=== PATIENT | female | born 1975 | race Caucasian/White ===

== ENCOUNTER 2024-05-31 22:23 | Emergency (ER) | payer BC, MEDICAID, SELFPAY ==
[2024-05-31 22:28] VITALS: BP 113/74; PULSE 86; RESP 19; TEMP 36.8; O2SAT 98; BMI 18.1
--- NOTE | 2024-05-31 22:40 | XRR_ITS ---
PROCEDURE INFORMATION: Exam: XR Left Foot Exam date and time: 05/31/2024 10:56 PM Age: 48 years old Clinical indication: Left; Patient HX: Pain to top of lt foot after dropping object on it today TECHNIQUE: Imaging protocol: Radiologic exam of the left foot. Views: 3 or more views. COMPARISON: No relevant prior studies available. FINDINGS: Bones/joints: Normal. Soft tissues: Normal. XR/XR foot LT min 3V* [id number] IMPRESSION: No acute findings.
--- NOTE | 2024-05-31 22:51 | ED_ITS ---
HPI - Extremity Problem General: Chief complaint: Extremity Injury, Lower Stated complaint: Left Top Of Foot Injury Time Seen by Provider: 05/31/24 22:33 History of Present Illness: Patient is a 48-year-old presents to the emergency department with complaints of foot pain. Patient reports that she not a heavy pot off the counter and it landed on the top part of her foot. Since that time increasing pain. She reports that this. Painful to bear weight. There are no wounds. The dorsum of the foot appears mildly swollen and ecchymotic. She is neurovascularly intact Related Data Allergies Allergy/AdvReac Type Severity Reaction Status Date / Time No Known Allergies Allergy Verified 05/31/24 22:47 Review of Systems General: Reports: 10 or more systems reviewed and unremarkable except in HPI and below Physical Exam Narrative: EXAM NARRATIVE: No acute distress Alert and oriented x 3 Afebrile vital signs stable Nonlabored breathing, symmetrical chest rise fall Appears well-perfused Nondistended abdomen. Moving all extremities Extremity: NARRATIVE EXTREMITY EXAM: Left lower extremity: Skin is clean dry and intact Mild edema and ecchymosis noted to the dorsum of the foot Patient is able to dorsiflex plantarflex her ankle She is able dorsiflex great toe Sensation intact light touch in medial, lateral, dorsal, plantar surface of the foot and first webspace DP pulses palpable and cap refills less than 3 seconds Course Vital Signs: Vital signs: Vital Signs Temperature 98.2 F 05/31/24 22:28 Pulse Rate 86 05/31/24 22:28 Respiratory Rate 19 H 05/31/24 22:28 Blood Pressure 113/74 05/31/24 22:28 Pulse Oximetry 98 05/31/24 22:28 Oxygen Delivery Me thod Room Air 05/31/24 22:28 MDM - Extremity (Nontraumatic) Medical Decision Making Patient is a 48-year-old female with a left foot injury. She underwent x-ray imaging of the foot to rule out fracture or fracture or dislocation. XR imaging of the left foot reveals no acute fractures. Going to advised patient to ice and elevate the extremity. Tylenol and NSAIDs as needed for pain. May return to the emergency department for new concerning or worsening symptoms XR interpretation done by ED provider, pending radiology final review Discharge Plan Discharge Patient Disposition: Home Clinical Impression: Contusion of foot Condition: Stable Discharge Orders: Discharge ED (Routine); Ordered 05/31/24 Ordered By: Paul John Discharge Diet: Advance as tolerated Discharge Activity: Resume usual activity Patient Instructions: Pain Management, Contusion Activity Restrictions/Additional Instructions: Rest, ice, compression, elevation along with nonsteroidal anti-inflammatory keara gs (ibuprofen, naproxen, Aleve) and Tylenol for pain and swelling Coding Level of Care Code ED Equity Sales Assistant for David Herrera
== END 2024-06-01 00:06 | disposition home or self-care (01) ==
PROVIDERS: Emergency Provider Nurse Practitioner
DX: S90.32XA Contusion of left foot, initial encounter (principal); W20.8XXA Other cause of strike by thrown, projected or falling object, initial encounter
CPT/HCPCS: 73630; 99283

== ENCOUNTER 2024-07-24 15:52 | Emergency (ER) | payer BC, MEDICAID, SELFPAY ==
[2024-07-24 15:56] VITALS: BP 108/72; PULSE 69; RESP 18; TEMP 36.7; O2SAT 99; BMI 20.5
[2024-07-24 17:13] LABS: Basophils # 0.1 10^3/uL (0.0-0.1); Basophils % 0.7 %; Eosinophils # 0.1 10^3/uL (0.0-0.8); Eosinophils % 1.1 %; Hematocrit 40.3 % (36-47); Lymphocytes # 2.8 10^3/uL (0.8-4.8); Lymphocytes % 37.6 %; Mean Platelet Volume 9.9 fL (7.4-10.4); Monocytes # 0.6 10^3/uL (0.2-0.9); Monocytes % 8.3 %; Neutrophils # 3.82 10^3/uL (1.8-7.7); Neutrophils % 52.2 %; Nucleated Red Blood Cells % 0 %; Platelet Count 297 10^3/cmm (157-399); Red Blood Count 4.58 10^6/uL (3.85-5.65); Red Cell Distribution Width 12.8 % (12.1-15.1); White Blood Count 7.32 10^3/uL (3.29-11.43)
[2024-07-24 17:28] LABS: HCG, Serum Qual Negative (Negative)
[2024-07-24 17:31] LABS: Alanine Aminotransferase < 5 U/L (0-33); Alkaline Phosphatase 75 U/L (35-105); Anion Gap 14.2 (5-19); Aspartate Amino Transferase 17 U/L (0-32); Blood Urea Nitrogen 18 mg/dL (6-20); Calcium 9.6 mg/dL (8.5-10.5); Carbon Dioxide 27 mmol/L (22-29); Chloride 104 mmol/L (98-107); Creatinine Clr Calc Pharmacy 99.8965; Globulin 2.5 g/dL (1.3-4.6); Glomerular Filtration Rate 107.2 mL/min (90-130); Glucose 84 mg/dL (65-115); Magnesium 2.3 mg/dL (1.7-2.3); Osmolality Calculated 293 mOsm/kg (285-295); Potassium 4.2 mmol/L (3.5-5.1); Sodium 141 mmol/L (136-145); Total Bilirubin 0.3 mg/dL (0.15-1.2); Total Protein 7.5 g/dL (6.6-8.7)
== END 2024-07-24 19:45 | disposition left against medical advice (07) ==
PROVIDERS: Physician Assistant; Emergency Provider Family Medicine
DX: Z53.21 Procedure and treatment not carried out due to patient leaving prior to being seen by health care provider (principal)
CPT/HCPCS: 36415; 80053; 83735; 84703; 85025

== ENCOUNTER 2025-02-16 18:55 | Observation (INO) | payer BC, MEDICAID, SELFPAY ==
--- NOTE | 2025-02-16 18:56 | ECG_ITS ---
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 Measurements Intervals [place] Rate: 108 P: 75 OK: 135 QRS: 81 QRSD: 81 T: 78 QT: 340 QTc: 458 Interpretive Statements SINUS TACHYCARDIA ABNORMAL RHYTHM ECG No previous ECG available for comparison Electronically Signed On 02-16-2025 22:44:22 CDT by Antonieta Ibanez M.D. [id number]
[2025-02-16 19:10] VITALS: BP 109/81; PULSE 88; RESP 26; TEMP 36.7; O2SAT 98; BMI 16.5
--- NOTE | 2025-02-16 19:12 | XRR_ITS ---
PROCEDURE INFORMATION: Exam: XR Chest Exam date and time: 02/16/2025 7:18 PM Age: 49 years old Clinical indication: Pain; Chest pressure; Additional info: Chest pain TECHNIQUE: Imaging protocol: Radiologic exam of the chest. Views: 1 view. COMPARISON: No relevant prior studies available. FINDINGS: Single film Lungs: Query hyperinflation. Unremarkable. No consolidation. Pleural spaces: Unremarkable. No pleural effusion. No pneumothorax. Heart/Mediastinum: Unremarkable. No cardiomegaly. Bones/joints: Unremarkable. XR/XR chest 1V portable [id number] IMPRESSION: No acute findings.
--- NOTE | 2025-02-16 19:13 | ED_ITS ---
HPI - Chest Pain 2 General: Chief Complaint: Chest Pain Stated Complaint: CHEST PAIN Time Seen by Provider: 02/16/25 18:58 History of Present Illness: Patient is a 49-year-old female that comes to the ER with central chest pain. This is pressure/sharpness in nature, associated with shortness of breath, diaphoresis, nausea. This started this morning. She has had this in the past, and had a stress test set up that she did not make it to due to social issues. She has received aspirin via EMS. She took nitroglycerin x 3 prior to EMS arrival, which caused her to have increasing shortness of breath, and did not help the chest pain. Patient states she has early family history of heart disease with females in their 40s, 2 aunts, mother. She has not had an official ischemic workup. 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 Selected Entries 02/16/25 19:10 ED Triage Comment arrives with shca- c/o substernal ch est pain described as pressure that started this am . Pt reports that th e pain radiates to the neck and left arm. Pt reportedl y took 3 sl nitro and started to c onvulse . Pt stat es this happens ev erytime. EMS repo rt that they gave her 324mg asa, and about 10gm of Dex trose. EMS reports that her BG was 4 9 and then recheck ed at 407. Dexrose stopped. Pt very anxious during tr iage and reports s tress in home life . Associated symptoms: Reports dyspnea and nausea; Deny abdominal pain, fever(s), palpitations or vomiting Related Data Allergies Allergy/AdvReac Type Severity Reaction Status Date / Time cephalexin (From Keflex) Allergy ALGY-Anaphy Verified 02/16/25 23:08 laxis levofloxacin (From Levaquin) Allergy ALGY-Anaphy Verified 02/16/25 23:08 laxis Penicillins Allergy ALGY-Anaphy Verified 02/16/25 23:08 laxis ranitidine Allergy ALGY-Hives Verified 02/16/25 23:08 Review of Systems 2 General: Reports: 10 or more systems reviewed and unremarkable except in HPI and below Const: Denies: fever(s) or chills Eyes: Denies: change in vision or blurry vision ENMT: Denies: throat pain or mouth pain Card: Reports: chest pain; Denies: palpitations Resp: Reports: dyspnea and non-productive cough GI: Reports: nausea; Denies: abdominal pain or vomiting : Denies: flank pain or difficulty voiding Musc: Denies: neck pain or back pain Skin/Breast: Denies: rash or pruritus Neuro: Denies: headache(s) Psych: Denies: anxiety or depression PFSH ED 2 PFSH: Social History (Updated 02/16/25 @ 22:32 by Johnnie Lindsey MD) Smoking and tobacco/nicotine status: former use of tobacco/nicotine Quit status (tobacco/nicotine): has quit using Year quit tobacco: 2023 Former quit date comment: Patient used to smoke cigars for about 2 years Alcohol intake: never Substance/Drug Use: never Additional social history: She wants DO NOT RESUSCITATE status as discussed with myself and her daughter Kaylyn on 02/16/2025 she had a [employer] business that her made her quit 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 Physical Exam 2 Const: COMMON NORMALS: no acute distress, average body habitus, patient oriented x3, no limitations, healthy appearing, alert and well nourished G ENERAL APPEARANCE: cooperative, comfortable, well kempt and well developed O RIENTATION/CONSCIOUSNESS: Yes awake, Yes oriented to person, Yes oriented to place and Yes oriented to time HENMT: COMMON NORMALS: normocephalic, atraumatic, hearing grossly normal bilaterally, external ears normal and TM's normal bilaterally HEAD & SCALP: n ormocephalic and atraumatic EXTERNAL EAR: Yes external ears normal T YMPANIC MEMBRANE: TM's normal bilaterally Neck/C-Spine: COMMON NORMALS: full ROM, no lymphadenopathy, supple and no meningeal signs Lymph: LYMPHATIC: no lymphadenopathy noted Chest: COMMONS NORMALS: normal inspection of the chest, normal palpation of entire chest wall and normal palpation of the breasts BREAST/AXILLA PALPATION: Yes normal palpation of the breasts Resp: COMMON NORMALS: normal respiratory effort, No retractions and clear to auscultation bilaterally AUSCULTATION: clear to auscultation bilaterally Cardio: COMMON NORMALS: regular rate and regular rhythm RATE: regular rate RHYTHM: regular rhythm GI: COMMON NORMALS: Normal to inspection, nondistended, normoactive bowel sounds present, Soft to palpation, non-tender and No hepatosplenomegaly present PALPATION: Yes Soft to palpation and Yes No hepatosplenomegaly present : COMMON NORMALS: Yes no CVA tenderness BLADDER/KIDNEY EXAM: Yes no CVA tenderness Back/Pelvis: COMMON NORMALS: no CVA tenderness Extremity: COMMON NORMALS: normal to inspection, full ROM and capillary refill normal Neuro: COMMON NORMALS: patient oriented x3 SENSORIUM/ORIENTATION: Yes alert, Yes oriented to person, Yes oriented to place and Yes oriented to time MENINGEAL SIGNS: Yes no meningeal signs Psych: APPEARANCE: Yes well kempt Skin: COMMON NORMALS: no rashes or lesions noted, no wounds and turgor normal GENERAL SKIN EXAM: no rashes or lesions noted and turgor normal Course 2 Reevaluation(s): Reevaluation #1: Pain improved after morphine Consultations: Consultation #1: Delta troponin is 16. Discussed with senior risk manager, Dr. Ibanez, recommended heparin, observation, and he will consult. Asked for hospitalist to admit Consultation #2: Discussed with Dr. Lindsey, excepted admit Vital Signs: Vital signs: Vital Signs Temperature 98.1 F 02/16/25 19:10 Pulse Rate 86 02/16/25 23:10 Respiratory Rate 14 02/16/25 22:30 Blood Pressure 117/80 02/16/25 23:10 Pulse Oximetry 98 02/16/25 23:10 Oxygen Delivery Me thod Room Air 02/16/25 22:30 MDM - Chest Pain Medical Decision Making Patient is a 49-year-old female that presented to the ED with having chest discomfort, substernal the entire day associated with shortness of breath, diaphoresis, and nausea. She had aspirin 324 mg by EMS. She took nitroglycerin 0.4 mg sublingual at home x 3 however she believes the pain was worse and caused her increasing shortness of breath. Her pain was relieved with morphine. EKG did not show any ST segment elevation. Her first troponin was 41, and therefore we kept her for additional troponin which was 57. Her delta troponin was 16, considered positive at this institution. Patient was placed on heparin at request of cardiology that we will consult, and cardiology Dr. Ibanez has asked that hospitalist admit. All the patient's questions were answered to her satisfaction. Medical Records I reviewed the patient's medical records. Lab Data 02/16/25 18:50 02/16/25 18:50 Radiology Impressions Chest X-Ray 02/16/25 19:12 IMPRESSION: No acute findings. Laboratory Results WBC 11.90 10^3/uL (3.29-11.43) H 02/16/25 18:50 RBC 5.02 10^6/uL (3.85-5.65) 02/16/25 18:50 Hgb 14.70 g/dL (11.27-16.99) 02/16/25 18:50 Hct 43.7 % (36-47) 02/16/25 18:50 MCV 87.1 fl (85-98) 02/16/25 18:50 MCH 29.3 pg (27-33) 02/16/25 18:50 MCHC 33.6 g/dL (30-55) 02/16/25 18:50 RDW 12.7 % (12.1-15.1) 02/16/25 18:50 Plt Count 414 10^3/cmm (157-399) H 02/16/25 18:50 MPV 10.0 fL (7.4-10.4) 02/16/25 18:50 Neut % (Auto) 52.0 % 02/16/25 18:50 Lymph % (Auto) 37.1 % 02/16/25 18:50 [place] % (Auto) 9.3 % 02/16/25 18:50 Eos % (Auto) 0.6 % 02/16/25 18:50 Baso % (Auto) 0.7 % 02/16/25 18:50 Neut # (Auto) 6.19 10^3/uL (1.8-7.7) 02/16/25 18:50 Lymph # (Auto) 4.4 10^3/uL (0.8-4.8) 02/16/25 18:50 [place] # (Auto) 1.1 10^3/uL (0.2-0.9) H 02/16/25 18:50 Eos # (Auto) 0.1 10^3/uL (0.0-0.8) 02/16/25 18:50 Baso # (Auto) 0.1 10^3/uL (0.0-0.1) 02/16/25 18:50 Nucleated RBC % (auto) 0 % 02/16/25 18:50 Nucleated RBCs # 0.0 /100WBC 02/16/25 18:50 APTT 23.6 SECONDS (23.9-36.7) L 02/16/25 18:50 D-Dimer 0.46 ug/mLFEU (0-0.59) 02/16/25 18:50 Sodium 139 mmol/L (136-145) 02/16/25 18:50 Potassium 4.0 mmol/L (3.5-5.1) 02/16/25 18:50 Chloride 100 mmol/L (98-107) 02/16/25 18:50 Carbon Dioxide 14 mmol/L (22-29) L 02/16/25 18:50 Anion Gap 29.0 (5-19) H 02/16/25 18:50 BUN 13 mg/dL (6-20) 02/16/25 18:50 Creatinine 1.0 mg/dL (0.5-0.9) H 02/16/25 18:50 GFR Calculation 59.4 mL/min (90-130) L 02/16/25 18:50 Glucose 165 mg/dL (65-115) H 02/16/25 18:50 POC Glucose 250 mg/dL (70-110) H 02/16/25 19:09 Calculated Osmolality 292 mOsm/kg (285-295) 02/16/25 18:50 Calcium 10.6 mg/dL (8.5-10.5) H 02/16/25 18:50 Total Bilirubin 0.4 mg/dL (0.15-1.2) 02/16/25 18:50 AST 17 U/L (0-32) 02/16/25 18:50 ALT 10 U/L (0-33) 02/16/25 18:50 Alkaline Phosphatase 90 U/L (35-105) 02/16/25 18:50 Creatine Kinase 83 U/L (26-192) 02/16/25 20:40 Troponin T Baseline 42 ng/L (0-10) H 02/16/25 18:50 Troponin T 120 Minute 57.82 ng/L (0-10) H 02/16/25 20:40 Delta Troponin T 15.82 ABS# (0-10) H* 02/16/25 20:40 Total Protein 7.6 g/dL (6.6-8.7) 02/16/25 18:50 Albumin 5.2 g/dL (3.5-5.2) 02/16/25 18:50 Globulin 2.4 g/dL (1.3-4.6) 02/16/25 18:50 All radiology interpretation(s) finalized by discharge EKG Data EKG 1: Interpretation: Normal sinus rhythm, normal axis, no ST segment elevation EKG 2: Interpretation: Normal sinus rhythm with early repolarization, normal axis, no ST segment elevation, QTc 435 ms Discharge Plan Discharge Patient Disposition: Placed in Observation Admit Provider: Johnnie Lindsey Clinical Impression: Atypical chest pain, Elevated troponin Coding Level of Care Code ED Refrigeration Plant Cork Insulator for David Herrera
[2025-02-16 19:25] LABS: Hematocrit 43.7 % (36-47); Hemoglobin 14.70 g/dL (11.27-16.99); Mean Corpuscular HGB Conc 33.6 g/dL (30-55); Mean Corpuscular Hemoglobin 29.3 pg (27-33); Mean Corpuscular Volume 87.1 fl (85-98); Nucleated Red Blood Cells % 0 %; Platelet Count 414 10^3/cmm (157-399); Red Blood Count 5.02 10^6/uL (3.85-5.65); White Blood Count 11.90 10^3/uL (3.29-11.43)
[2025-02-16] MEDS: ondansetron 2 mg/ML SDV 2 mL 4 MG IVP (19:35)
[2025-02-16 19:36] VITALS: RESP 20
[2025-02-16] MEDS: morphine 4 mg/mL SDV 1 mL IVP (19:36)
[2025-02-16 19:42] LABS: Troponin(5th) Baseline 42 ng/L (0-10)
[2025-02-16 19:52] LABS: Alanine Aminotransferase 10 U/L (0-33); Albumin Level 5.2 g/dL (3.5-5.2); Alkaline Phosphatase 90 U/L (35-105); Anion Gap 29.0 (5-19); Aspartate Amino Transferase 17 U/L (0-32); Blood Urea Nitrogen 13 mg/dL (6-20); Calcium 10.6 mg/dL (8.5-10.5); Carbon Dioxide 14 mmol/L (22-29); Chloride 100 mmol/L (98-107); Creatinine Clr Calc Pharmacy 47.8088; Globulin 2.4 g/dL (1.3-4.6); Glucose 165 mg/dL (65-115); Osmolality Calculated 292 mOsm/kg (285-295); Potassium 4.0 mmol/L (3.5-5.1); Sodium 139 mmol/L (136-145); Total Protein 7.6 g/dL (6.6-8.7)
[2025-02-16 20:15] VITALS: BP 109/84; PULSE 86; RESP 16; O2SAT 98
[2025-02-16 20:45] VITALS: BP 113/80; PULSE 80; RESP 14; O2SAT 96
[2025-02-16 21:01] LABS: Troponin 5 2HR 57.82 ng/L (0-10)
--- NOTE | 2025-02-16 21:13 | ECG_ITS ---
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
[2025-02-16 21:20] LABS: Troponin 5 2HR Delta 15.82 ABS# (0-10)
[2025-02-16 21:52] LABS: Partial Thromboplastin Time 23.6 SECONDS (23.9-36.7)
--- NOTE | 2025-02-16 22:01 | ECG_ITS ---
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
[2025-02-16] MEDS: heparin drip 25,000 UNIT/500 ML PREMIX 12 UNIT IV (22:10)
[2025-02-16] MEDS: heparin 5,000 unit/mL INJ 1 mL IVP (22:20)
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
[2025-02-16 22:30] VITALS: BP 127/90; PULSE 78; RESP 14; O2SAT 97
[2025-02-16 23:10] VITALS: BP 117/80; PULSE 86; O2SAT 98
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
[2025-02-17] VITALS (9 sets, daily range): BP systolic 101–128; BP diastolic 75–84; PULSE 62–88; RESP 14–22; TEMP 36.4–37.1; O2SAT 95–100
[2025-02-17] MEDS: lidocaine 2% viscous 15 ML, aluminum-mag hydrox-simethicon 30 ML, sucralfate oral liq 1 GM PO (01:01)
[2025-02-17] MEDS: morphine 4 mg/mL SDV 1 mL 2 MG IVP ×2 (01:06→15:56)
[2025-02-17 01:36] LABS: Troponin 5 6HR 53.68 ng/L (0-10); Troponin 5 6HR Delta 11.68 ng/L (0-12)
--- NOTE | 2025-02-17 01:38 | ECG_ITS ---
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 Measurements Intervals [place] Rate: 72 P: 63 SD: 148 QRS: 77 QRSD: 75 T: 59 QT: 401 QTc: 441 Interpretive Statements SINUS RHYTHM MODERATE T-WAVE ABNORMALITY, CONSIDER ANTERIOR ISCHEMIA [-0.1+ mV T-WAVE IN V3/V4] Compared to ECG 02/16/2025 22:01:15 T-wave abnormality now present Possible ischemia now present Electronically Signed On 02-18-2025 22:28:51 CDT by Marcos Nunez M.D. [id number]
--- NOTE | 2025-02-17 01:53 | PC.NURSE ---
Received patient from ER around 2330 patient is accompanied by daughter josh and nephew. Dr. Ibanez at bedside followed by hospital laboratory technician.
--- NOTE | 2025-02-17 01:59 | PC.NURSE ---
Received a phone call from Dr. Ibanez regarding how the troponins were trending. Received orders to keep her NPO for now and he will see her in AM.
[2025-02-17] MEDS: nitroglycerin 1 gm/inch oint Pkt 0.5 INCH TOPICAL (03:55)
[2025-02-17 04:28] LABS: Partial Thromboplastin Time 81.9 SECONDS (23.9-36.7)
[2025-02-17 04:29] LABS: Cholesterol 182 mg/dL (0-200); HDL Cholesterol 43 mg/dL (60-100); Triglycerides 52 mg/dL (0-150)
--- NOTE | 2025-02-17 08:26 | ECG_ITS ---
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
--- NOTE | 2025-02-17 08:51 | PM.PN ---
Subjective Subjective: The patient denies any chest pain . She is still having some tight feeling in the chest. Oxygenation is appropriate. The vitals are stable. She also has some headache. The troponin T at 6 hours show a delta of 11.6 Medications: Medication Review Details: Current Medications Aspirin (Aspirin 81 Mg Chew Tablet) 162 mg PO DAILY [facility] Last Admin: 02/17/25 08:45 Dose: 162 mg Atorvastatin Calcium (Atorvastatin 40 Mg Tablet) 20 mg PO BEDTIME [facility] Last Admin: 02/17/25 01:06 Dose: 20 mg Glucagon (Glucagon 1 Mg/Ml Kit 1 Ml) 1 mg IM ONCE PRN; Protocol PRN Reason: Adult Acute Hypoglycemia Nursing Prot. Heparin Sodium (Porcine) (Heparin 5,000 Unit/Ml Inj 1 Ml) 0 unit IVP PRN PRN; Protocol PRN Reason: Heparin Weight Based Protocol -Subsequent Bolus Heparin Sodium/Sodium Chloride (Heparin Drip) 25,000 unit in 500 mls @ 0 mls/hr IV CONT KRISTI; Protocol Last Titration: 02/17/25 05:27 Dose: 12.63 unit/kg/hr, 11 mls/hr Lactated Ringer's (Lactated Ringers) 1,000 mls @ 100 mls/hr IV .Q10H KRISTI Last Admin: 02/17/25 01:06 Dose: 100 mls/hr Dextrose (D5w) 500 mls @ 0 mls/hr IV ONCE PRN; Protocol PRN Reason: Adult Acute Hypoglycemia Prot Dextrose (D10w) 125 mls @ 750 mls/hr IV PRN PRN; Protocol PRN Reason: Adult Acute Hypoglycemia Nursing Protocol Dextrose (D10w) 250 mls @ 1,000 mls/hr IV PRN PRN; Protocol PRN Reason: Adult Acute Hypoglycemia Nursing Protocol Morphine Sulfate (Morphine 4 Mg/Ml Sdv 1 Ml) 2 mg IVP Q1H PRN PRN Reason: SEVERE PAIN Last Admin: 02/17/25 01:06 Dose: 2 mg Nitroglycerin (Nitroglycerin 1 Gm/Inch Oint Pkt) 0.5 inch TOPICAL Q6H PRN PRN Reason: CHEST PAIN Last Admin: 02/17/25 03:55 Dose: 0.5 inch Prednisone (Prednisone 20 Mg Tablet) 40 mg PO NOW [facility] Vitals/I&O/Wt Last Vital Signs Temp 97.5 F L 02/17/25 08:00 Pulse 76 02/17/25 08:00 Resp 16 02/17/25 08:00 BP 101/78 02/17/25 08:00 Pulse Ox 99 02/17/25 08:00 O2 Del Method Room Air 02/17/25 08:00 02/16/25 02/17/25 02/17/25 22:59 06:59 14:59 Intake Total 1150 / 1150 87.4 / 1237.4 Balance 1150 / 1150 87.4 / 1237.4 Weight last 48 hrs Weight 105 lb 4.8 oz Weight 105 lb 9.6 oz Weight 104 lb 8 oz Weight 97 lb 9.6 oz Weight 96 lb Physical Exam Narrative: GENERAL: The patient is alert and oriented times three. Not in any acute distress. HEENT: No significant pallor, icterus or lymphadenopathy.Oral cavity: There are no mucous membrane lesions. NECK: Trachea appears to be central. No masses noted. No JVD or thyromegaly appreciated. RESPIRATORY: Chest is symmetrical. No intercostals muscle retraction or any accessory muscle activation. There is no chest wall tenderness. Breath sounds are heard bilaterally. No rales or rhonchi heard. No evidence of any consolidation. BREASTS: Deferred. HEART: The heart sounds are normal. No S3 or S4. No significant murmurs. No pericardial rub ABDOMEN: No vessel pulsations or distention. No tenderness. No organomegaly appreciated. Bowel sounds are normally heard. : Deferred. RECTAL: Deferred. LYMPHATIC: No lymphadenopathy noted in the neck. EXTREMITIES: No edema or cyanosis. No clubbing. The feet are relatively cold MUSCULOSKELETAL: No acute joint deformities or swelling SKIN: There are no significant rashes or ecchymosis NEUROPSYCHIATRIC: The patient is alert and oriented x3. Appears to be in a good mood. No tremors or rigidity noted. Data 02/16/25 18:50 02/16/25 18:50 Other Labs: Laboratory Last Values WBC 11.90 10^3/uL (3.29-11.43) H 02/16/25 18:50 RBC 5.02 10^6/uL (3.85-5.65) 02/16/25 18:50 Hgb 14.70 g/dL (11.27-16.99) 02/16/25 18:50 Hct 43.7 % (36-47) 02/16/25 18:50 MCV 87.1 fl (85-98) 02/16/25 18:50 MCH 29.3 pg (27-33) 02/16/25 18:50 MCHC 33.6 g/dL (30-55) 02/16/25 18:50 RDW 12.7 % (12.1-15.1) 02/16/25 18:50 Plt Count 414 10^3/cmm (157-399) H 02/16/25 18:50 MPV 10.0 fL (7.4-10.4) 02/16/25 18:50 Neut % (Auto) 52.0 % 02/16/25 18:50 Lymph % (Auto) 37.1 % 02/16/25 18:50 Reeves % (Auto) 9.3 % 02/16/25 18:50 Eos % (Auto) 0.6 % 02/16/25 18:50 Baso % (Auto) 0.7 % 02/16/25 18:50 Neut # (Auto) 6.19 10^3/uL (1.8-7.7) 02/16/25 18:50 Lymph # (Auto) 4.4 10^3/uL (0.8-4.8) 02/16/25 18:50 Reeves # (Auto) 1.1 10^3/uL (0.2-0.9) H 02/16/25 18:50 Eos # (Auto) 0.1 10^3/uL (0.0-0.8) 02/16/25 18:50 Baso # (Auto) 0.1 10^3/uL (0.0-0.1) 02/16/25 18:50 Nucleated RBC % (auto) 0 % 02/16/25 18:50 Nucleated RBCs # 0.0 /100WBC 02/16/25 18:50 APTT 81.9 SECONDS (23.9-36.7) H D 02/17/25 04:01 D-Dimer 0.46 ug/mLFEU (0-0.59) 02/16/25 18:50 Sodium 139 mmol/L (136-145) 02/16/25 18:50 Potassium 4.0 mmol/L (3.5-5.1) 02/16/25 18:50 Chloride 100 mmol/L (98-107) 02/16/25 18:50 Carbon Dioxide 14 mmol/L (22-29) L 02/16/25 18:50 Anion Gap 29.0 (5-19) H 02/16/25 18:50 BUN 13 mg/dL (6-20) 02/16/25 18:50 Creatinine 1.0 mg/dL (0.5-0.9) H 02/16/25 18:50 GFR Calculation 59.4 mL/min (90-130) L 02/16/25 18:50 Glucose 165 mg/dL (65-115) H 02/16/25 18:50 POC Glucose 250 mg/dL (70-110) H 02/16/25 19:09 Calculated Osmolality 292 mOsm/kg (285-295) 02/16/25 18:50 Calcium 10.6 mg/dL (8.5-10.5) H 02/16/25 18:50 Total Bilirubin 0.4 mg/dL (0.15-1.2) 02/16/25 18:50 AST 17 U/L (0-32) 02/16/25 18:50 ALT 10 U/L (0-33) 02/16/25 18:50 Alkaline Phosphatase 90 U/L (35-105) 02/16/25 18:50 Creatine Kinase 83 U/L (26-192) 02/16/25 20:40 Troponin T Baseline 42 ng/L (0-10) H 02/16/25 18:50 Troponin T 120 Minute 57.82 ng/L (0-10) H 02/16/25 20:40 Delta Troponin T 15.82 ABS# (0-10) H* 02/16/25 20:40 Troponin T Hi Sens 6Hr 53.68 ng/L (0-10) H 02/17/25 00:35 Troponin T Hi Sens 6Hr Delta 11.68 ng/L (0-12) 02/17/25 00:35 Total Protein 7.6 g/dL (6.6-8.7) 02/16/25 18:50 Albumin 5.2 g/dL (3.5-5.2) 02/16/25 18:50 Globulin 2.4 g/dL (1.3-4.6) 02/16/25 18:50 Triglycerides 52 mg/dL (0-150) 02/17/25 04:01 Cholesterol 182 mg/dL (0-200) 02/17/25 04:01 LDL Cholesterol, Calc 129 mg/dL (50-129) 02/17/25 04:01 HDL Cholesterol 43 mg/dL (60-100) L 02/17/25 04:01 LDL/HDL Ratio 3.00 RATIO (0.00-3.22) 02/17/25 04:01 Cholesterol/HDL Ratio 4.23 mg/dL (0.0-4.40) 02/17/25 04:01 A&P Assessment and plan 1. Elevated troponin: Baseline troponin T was found to be elevated with positive delta suggesting a non-ST elevation myocardial infarction. She is seems to be stable hemodynamically. The EKG is unremarkable. Repeat EKG from this morning shows sinus rhythm with no significant ECG changes 2. Atypical chest pain: With elevated troponin T and the strong family history for premature atherosclerotic heart disease, her clinical features may suggest a non-ST elevation myocardial infarction. For further evaluation, an echocardiogram would be helpful. The echocardiogram showed relative hypokinesia of the mid and apical septal segments. But the overall LV ejection fraction is normal. 3. SOB (shortness of breath): This could be related to underlying coronary ischemia. However his EKG is unremarkable. Possibility for PE cannot be excluded. We may go ahead and do a D-dimer. 4. AVNRT (AV guillermo re-entry tachycardia): He has not had any tachycardic events since the ER visit. No tacky arrhythmias on the monitor so far Plan: I discussed with the patient the findings of the echocardiogram and the blood test results. The D-dimer is normal. Most likely the features may suggest a non-ST elevation myocardial infarction. For further evaluation of the coronary status, a cardiac catheterization would be appropriate. The risks and benefits were discussed with the patient. The risk of bleeding, hematoma, vascular injury, myocardial infarction, myocardial perforation, malignant cardiac arrhythmias ,CVA, renal failure and other concomitant complications were explained in detail. Patient understood this well and consented to proceed. Patient had multiple contrast media injection in the past. There was one time, she had an episode of allergic reaction to dye?. She also was given Tamiflu around the same time. Patient seems to think that the Tamiflu might have caused the reaction. So we may plan for the angiogram sometime today. Will keep her n.p.o. Discussed with Dr. Dyson. PDMP PDMP Reviewed: Not Reviewed Attestations Medical Necessity Statement*: Patient requires continued hospital stay for close monitoring and further management Coding Level of Care Code 14318 Diagnoses Elevated troponin R79.89 Atypical chest pain R07.89 SOB (shortness of breath) R06.02 AVNRT (AV guillermo re-entry tachycardia) I47.19
[2025-02-17 09:25] LABS: Estmated Average Glucose 111; Hemoglobin A1C 5.5 % (4.0-6.0)
--- NOTE | 2025-02-17 09:48 | PC.CHAP ---
Pastoral Care Encounter/Spiritual Assessment Type of Contact [] Declined front desk auxiliary visit [] Patient/Family/Request visit [] Outpatient visit [] Follow-up visit [] Physician referral [] Code/Alert [x] Routine visit [] Staff referral [] Actively dying [] Patient sleeping [x] Family support [] [] Out of room [] Palliative care [] [] Receiving care in room [] Pre-surgical visit [] Trauma [] Long length of stay [] ICU visit [] Other: Relational/Emotional Strength [x] Patient feels connected with others/family/visitors/staff [] Distress [] Loneliness/isolation [] Abandonment Spirituality of Patient [x] Person of Tabby [] Attends Taoism of their Tabby [x] Believes in Prayer [] Reads Bible or Yarsani materials [] There are Spiritual issues to be addressed 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 [x] Prayer [x] Active listening [x] Non-anxious presence [x] Spiritual/emotional support [] Crisis/trauma care [] Spiritual counseling [] Bereavement support [] Provided bereavement packet [] Provided Bible/devotional materials [] Provided toy/stuffed animal, coloring book to patient or family member [] Provided Communion [] Anointing/[place] [] Salvation [x] Completed spiritual assessment [] Other: Impact on Illness or Injury [] Angry [] Fearful [] Anxious [] Often cries [] Exhaustion [] Unable to work [] Unable to attend muslim [] Unable to walk/stand [] Unable to read [] Unable to drive [] Unable to eat/drink [] Unable to sleep [] Unable to be with family [] Patient intubated [] Other: Summary Time spent with patient 5 min
--- NOTE | 2025-02-17 10:11 | XACV_ITS ---
Exam Room: [facility] Ht: 163 cm Wt: 48 kg BSA: 1.46 m2 Gender: Female : 1975 Any Known Allergies: Other Exam Priority: Routine Procedure(s): Procedure Description: Diagnostic procedure Procedure Description: Left Heart Catheterization Procedure Description: Left ventriculography Procedure Description: Aortic Arch Angiography Procedure Description: Miscellaneous Procedure Description: ACT Procedure Description: Coronary Angiography Shamar; Diagnostic Cath Status: Elective Diagnostic Findings * The left main is a medium caliber short vessel with no significant stenotic lesions. * Left anterior descending artery is a medium caliber vessel which appears to wraparound the LV apex. The ostium of the LAD was found to have around 40% stenosis. The proximal LAD was found to have mild diffuse ectasia. There is a tapering negative for around 40%, towards the takeoff of the first septal slaughterer religious ritual. The first diagonal branch was found to have an ostial around 50% narrowing. The mid and distal LAD was found to have no significant lesions.. * The left circumflex artery was found to have the remaining caliber vessel with no significant lesions. * The right coronary artery is a medium caliber dominant vessel with no significant lesions. Conclusions 1. 49-year-old white female with history of premature atherosclerotic heart disease, AV guillermo reentry tachycardia is admitted to hospital with complaints of chest pain and shortness of breath. She had elevated troponin T with a positive delta of around 17 at 2 hours. Her EKG was unremarkable. Echocardiogram revealed relative hypokinesia of the mid and apical septal and anteroseptal segments. Normal LV ejection fraction. The patient has been having episodes of chest pain for the last couple of years. She may have her ongoing symptoms and the abnormal objective findings, in order to further evaluate the coronary status, a cardiac catheterization was recommended. Patient underwent left heart catheterization with a left and right coronary angiogram, LV angiogram and aortogram today. The findings are as follows.. 2. No significant left main lesions. 40% lesion in the ostium of the left and descending artery and at the takeoff of the first diagonal branch. 50% ostial stenosis of the first diagonal branch. No severe lesions in the left circumflex artery and the right coronary artery. LV ejection fraction of 55%. Mild hypokinesis of the anteroapical region. LVEDP was 30 mmHg. The aortic root was found to be dilated. Aortogram revealed mild diffuse ectasia of the ascending aorta.. 3. The cardiac colorization data was reviewed and discussed with the . It was thought to be appropriate to continue the medical treatment at this point. Patient was transferred to the medical floor in stable condition. Diagnostic RX Recommendation: medical therapy and/or counseling LV EDP: 13 mmHg Ventriculography Ejection Fraction: 55.0 % Left Ventriculography Findings: * The LV gram was performed in LIEBERMAN projection. LV cavity appeared to be normal size. There is no severe mitral valve prolapse or mitral regurgitation. Mild hypokinesis of the anteroapical region was noted. The aortic root appears to be mildly dilated. * An aortogram was performed because of the aortic root dilatation. It was performed in the shallow BHUTANESE view. Mild diffuse ectasia of the ascending aorta was noted with no evidence of dissection or aneurysm. Pressures Phase:Rest AO : 106 / 74 ( 89 ) @ 1:10:00 PM 107 / 78 ( 92 ) @ 1:10:00 PM 103 / 75 ( 89 ) @ 1:12:00 PM 115 / 89 ( 102 ) @ 1:15:00 PM 104 / 49 ( 77 ) @ 1:21:00 PM 105 / 41 ( 72 ) @ 1:21:00 PM 82 / 62 ( 73 ) @ 1:23:00 PM LV : 107 / -13 / 13 @ 1:20:00 PM 104 / -13 / 10 @ 1:20:00 PM 104 / -13 / 10 @ 1:21:00 PM Valves Phase:DefaultPhase AV : 0.0 @ 12:47:49 PM AV Mean Gradient: 0.0 @ 12:47:49 PM Clinical Evaluation EBL: 5mL-10mL Procedural Details Procedure Consent Obtained. Current Diagnosis : Chest Pain. Pre-Procedure Time Out. Identified patient by full name and date of as verbalized by the patient/guarantor. Does the consent match the physician's order: Yes. Accurate & Complete Informed Consent: Yes. Inpatient/Outpatient History & Physical on Chart: Yes. If H&P is completed, is and addenduem needed: No; If yes, is the addendum complete: N/A. Visualize and Verify Site with Patient/Guarantor: N/A. Relevant Radiology Images available: Yes. Pre-op teaching completed and patient verbalized understanding. The risks, benefits, and alternatives of sedation and/or procedure were discussed by physician. The patient agrees to continue. Procedure started. [facility] Clinical Fraility Score: 3: Managing Well. 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 Chest Pain Symptom Assessment: Typical Angina Symptoms. Correct patient, site and procedure confirmed by cath team. Current diagnosis: Chest Pain. IV Site on Arrival: 18 gauge in the right anticubital. IV Site on Arrival: 18 gauge in the left anticubital. IV Fluids: 0.9% NaCl at KVO. 0 mL infused prior to mushroom laborer. Oxygen started at 2liters/min via nasal canula. bilateral groins was prepped with chloroprep then draped in the usual sterile fashion. Baseline sample Acquired. HR: 77 BPM. Physician notified. Physician arrived. Physician scrubbed in. Immediate Pre-Procedure Time Out. Correct Patient: Yes; Correct Procedure: Yes; Correct Site: Yes; Correct Patient Position: Yes; Correct Supplies: Yes; Dried Flammable Prep: Yes; Blood Products Available: N/A;. Lidocaine 1% infiltrated to the right groin. Arterial access obtained with micropuncture set. ACT drawn. Results 149 seconds. Therapeutic limits - pre-heparin administration 90-150 seconds and monitoring heparin during a vascular procedure >250 seconds. A 5 equatorial guinean JL4 catheter in over wire. Multiple views taken of left coronary artery. Catheter removed over the standard wire. A 5 equatorial guinean JR4 catheter in over wire. Multiple views taken of right coronary artery. Catheter removed over the standard wire. A 5 equatorial guinean Angled Pig catheter in over wire. Dr. Ferro called to review films. EDP Sample taken: LV 107/-14,13; HR: 72 BPM; SpO2: 99%. LV gram performed in LIEBERMAN @ 10 mL/second for a total of 30 mL. EDP Sample taken: LV 104/-14,10; HR: 74 BPM; SpO2: 99%. Pullback taken: LV 104/-14,10; AO 104/49(77); Mean: 0mmHg, Peak to Peak: 0mmHg, SEP: 7sec/min; HR: 74 BPM; SpO2: 99%. Aortogram performed in AP @ 20 mL/second for a total of 20 mL. Aortic Root Visualized. Dr. Ferro arrived. Catheter removed over the standard wire. Dr. Ibanez scrubbed out. A Manual Compression was successful obtaining hemostatsis at the Right Femoral artery insertion site. Sheath(s) removed and manual pressure held until hemostasis was achieved. Sterile 4x4 and Op-site applied to the puncture site. No oozing or hematoma noted. Post sheath removal instructions were given and the patient verbalized understanding. Medication's Wasted: Lidocaine 1% = 2 mL. Medication's Wasted: Other = Solu-Medrol 85 mg. Medication's Wasted: Heparin = 2000 units. Total IV fluids: 50 mL. Post-op diagnosis: Non-obstructive CAD. Complications: None. Estimated blood loss: 5mL-10mL. Responsiveness - Normal response to verbal stimuli; alert and oriented, PERRLA. PERRLA. Strong, equal hand nursery school teacher bilaterally. No VTE prophylaxis required. Airway - Unaffected, no intervention required; spontaneous ventilation. Circulation: W/N/L, pulses unchanged. Nausea/Vomiting: No. Post Procedure: Pulses reassessed and unchanged. Procedure completed. Patient transferred by bed to 1st floor. Vital chart was stopped. Access Site Site: Right Femoral artery Sheath Size: 6 Fr Hemostasis Method: Manual Compression Hemostasis Success: Successful Procedure Medications Start: 11:56 AM Stop: 11:56 AM Medication: Versed Amount: 1 mg Route: I.V. Start: 11:56 AM Stop: 11:56 AM Medication: Fentanyl Amount: 50 mcg Route: I.V. Start: 11:57 AM Stop: 11:57 AM Medication: Solu-Medrol (methylprednisolone) Amount: 40 mg Route: I.V. Start: 12:18 PM Stop: 12:18 PM Medication: Versed Amount: 1 mg Route: I.V. Start: 12:18 PM Stop: 12:18 PM Medication: Fentanyl Amount: 50 mcg Route: I.V. I, the attending physician, have reviewed and verified all procedure medications. Yes, all medications given per verbal order History/Risk Factors Hypertension: No Dyslipidemia: No Peripheral Arterial Disease (PAD): No Myocardial Infarction (DC): No Obesity: No Renal Disease: No Tobacco Use: Former Prior Interventions PCI: No CABG: No Valve Surgery: No Report Signatures Finalized by Dr Antonieta Ibanez MD [facility] on 02/17/2025 01:30 PM
--- NOTE | 2025-02-17 11:57 | P.HPUD_ITS ---
Surgery/Procedure H&P Update DATE OF PROCEDURE: February 17, 2025 DATE H&P PERFORMED: 02/16/25 H&P UPDATE INFORMATION: I have reviewed H&P completed within last 30 days, I have examined patient prior to procedure, No changes to prior documentation, Changes to prior documentation as noted here and H&P to be scanned into chart PREOP DIAGNOSIS: NSTEMI PRIMARY INDICATION FOR PROCEDURE: Unstable angina/non-ST elevation myocardial infarction/family history of premature heart disease PLANNED PROCEDURE: Left heart catheterization with coronary angiogram and possible PCI PATIENT REASSESSED PRIOR TO SEDATION, WITH NO CHANGE NOTED: Yes PHYSICAL EXAM: alert, oriented x 3, clear to auscultation bilaterally and r egular rate & rhythm AIRWAY EVAL/ANESTHESIA PLAN: normal airway, see other exam findings, ASA III, Monitored Anesthesia, Local Anesthesia, Risks, benefits & alternatives of sed ation and/or procedure discussed and Patient agrees to continue as planned
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
--- NOTE | 2025-02-17 23:20 | USCV_ITS ---
Ilana Wilkerson Age: 49 Gender: F : 1975 Exam Date: 02/17/2025 00:09 Ordering Phys: Antonieta Ibanez MD ([email or web address]) Technologist: JASPREET [place] [facility] [place]: chesrt pain , SOB BP: 117 / 80 HR: 68 Rhythm: Sinus Technical Quality: Adequate MEASUREMENTS (Male / Female) Normal Values 2D ECHO LV Diastolic Diameter PLAX 3.9 cm 4.2 - 5.9 / 3.9 - 5.3 cm IVS Diastolic Thickness 1.0 cm 0.6 - 1.0 / 0.6 - 0.9 cm IVS Systolic Thickness 1.2 cm LVPW Diastolic Thickness 0.9 cm 0.6 - 1.0 / 0.6 - 0.9 cm LVPW Systolic Thickness 1.3 cm LVOT Diameter 1.8 cm LV Ejection Fraction 2D Teich 61.6 % LV Ejection Fraction MOD 4C 56.9 % LV Ejection Fraction MOD 2C 70.2 % LV Ejection Fraction 2C AL 72.2 % LA Diameter 1.8 cm Aorta at Sinotubular Diameter 3.0 cm IVC Diameter 1.1 cm M-MODE LA Ao Ratio MM 1.0 AV Cusp Separation MM 2.1 cm DOPPLER AV Peak Velocity 83.0 cm/s LVOT Peak Velocity 80.0 cm/s AV Area Cont Eq vti 2.4 cm squared AV Area Cont Eq pk 2.5 cm squared MV Peak Velocity 111.0 cm/s MV Area PHT 3.7 cm squared Mitral E to A Ratio 1.4 TV Peak Velocity 161.0 cm/s TR Peak Velocity 233.0 cm/s TR Peak Gradient 21.7 mmHg TV Peak E Velocity 61.0 cm/s PV Peak Velocity 76.0 cm/s FINDINGS Left Ventricle Relative hypokinesia of the mid and apical septum and the anteroseptal segments. Ejection fraction of 57%. Right Ventricle The right ventricle is normal in size and function. Right Atrium The right atrium is normal in size. Left Atrium The left atrium is normal in size. Mitral Valve No gross abnormalities noted Aortic Valve No gross abnormalities noted Tricuspid Valve Trace tricuspid valve regurgitation. Pulmonic Valve Trace pulmonary valve regurgitation. Pericardium Normal pericardium without effusion. Aorta Normal aortic annulus size. IVC Normal inferior vena cava. CONCLUSIONS Normal LV size with an ejection fraction of 57%. Relative hypokinesia of the mid and apical septum and the anteroseptal segments. Trace of pulmonic and tricuspid regurgitation Normal cardiac chamber sizes There is no pericardial effusion. There are no intracardiac masses. No similar previous studies are available for comparison Dr Antonieta Ibanez MD FAC (Electronically Signed) Final Date: 17 February 2025 08:03 S
--- OUTSIDE RECORDS SUMMARY | 2025-02-18 12:29 | XMS_ITS | Encounter Summary ---
Author Organization [facility] Address [address] [place] [address] Care Team Providers Care Class 1 Owner Operator Name Role Phone Maria Teresa Winters NP Primary Care Provider Unavailab le Reason for Visit * Reason Comments Office Visit: Converted Data Conversion Encounter Details Date Type Department Care Team (Late st Contact Info) Description 01/15/2024 Dental Interim Note [facility] [address] [place] [address] [facility] [place] Social History Tobacco Use Types Packs/Day Years Used Date Smoking Tobacco: Never Assessed Social Connections Answer Date Recorded Social Connections and Isolation 0 10/31/2023 Financial Resource Strain Answer Date R ecorded Financial Resource Strain 0 2023 Stress Answer Date Recorded Stress 0 10/31/2023 Physical Activity Answer Date Recorded Physical Activity 0 10/31/2023 Food Insecurity Answer Date Recorded Food 0 10/31/2023 Transportation Needs Answer Date Record ed Transportation 0 10/31/2023 Housing Stability Answer Date Recorded Housing 0 10/31/2023 Safety and Environment Answer Date Abraham rded Safety 0 10/31/2023 Utilities Answer Date Recorded Utilities 0 10/31/2023 Employment Answer Date Recorded Employment 0 10/31/2023 Comments Unknown Sex and Gender Information Value Date Recorded Sex Assigned at Not on file Legal Sex Female 6:53 PM PDT Gender Identity Choose not to disclose 3:53 PM PDT Sexual Orientation Choose not to disclose 2023 3:53 PM PDT documented as of this encounter Plan of Treatment Scheduled Orders Name Type Priority Associated Diagnoses Order Schedule 29 29 CROWN - PORCELAIN/CERAMIC Dental Procedures Routine 1 Occurrence s starting 12/25/2023 29 29 ENDODONTIC THERAPY PREMOLAR TOOTH Dental Procedures Routine 1 Occurrences starting 12/25/2023 29 29 EXTRACTION ERUPTED TOOTH OR EXPOSED ROOT Dental Procedures Routine 1 Occurrences starting 12/25/2023 documented as of this encounter Visit Diagnoses Not on filedocumented in this encounter Care Teams Class 1 Owner Operator Relationship Specialty Start Date End Date Maria Teresa Winters NP PCP - General ORDER DESK CALLER Nurse Practitioner 03/14/24 10/22/24 documented as of this encounter
--- OUTSIDE RECORDS SUMMARY | 2025-02-18 12:29 | XMS_ITS | Encounter Summary ---
Author Organization [facility] Address [address] [place] [address] Care Team Providers Care Fondant Puff Maker Name Role Phone Maria Teresa Winters NP Primary Care Provider Unavail le Encounter Details Date Type Department Care Team (Late st Contact Info) Description 01/07/2024 Dental Interim Note [facility] [address] [place] [address] Shahzad Cronin Social History Tobacco Use Types Packs/Day Years [...] as of this encounter Plan of Treatment Not on file documented as of this encounter Procedures Procedure Name Priority Date/Time Associated Diagnosis Comments 29 (V) AMALGAM - WISDOM (NON BILLABLE) Routine 01/07/2024 12:00 AM CDT 19 CHRISTINE AMALGAM - WISDOM (NON BILLABLE) Routine 01/07/2024 12:00 AM CDT 18 O AMALGAM - WISDOM (NON BILLABLE) Routine 01/07/2024 12:00 AM CDT 30 O AMALGAM - WISDOM (NON BILLABLE) Routine 01/07/2024 12:00 AM CDT 31 B(V)OL COMPOSITE - WISDOM (NON BILLABLE) Routine 11/07/2023 12:00 AM CDT 31 O AMALGAM - WISDOM (NON BILLABLE) Routine 09/12/2023 12:00 AM PULP MILL OPERATOR documented in this encounter Visit Diagnoses Diagnosis Periapical abscess without sinus tract- Primary Periapical abscess without sinus Dental caries on smooth surface penetrating into pulp Dental caries of smooth surface documented in this encounter Care Teams Fondant Puff Maker Relationship Specialty Start Date End Date Maria Teresa Winters NP PCP - General POWERHOUSE ATTENDANT Nurse Practitioner 03/14/24 10/22/24 documented as of this encounter
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
--- OUTSIDE RECORDS SUMMARY | 2025-02-18 14:03 | XMS_ITS | Encounter Summary ---
Author Organization [facility] Address [address] [place] [address] Care Team Providers Care Scarf And Anneal Operator Name Role Phone Maria Teresa Winters NP Primary Care Provider Unavailab le Reason for Visit * Reason Comments Office Visit: Converted Data Conversion Encounter Details Date Type Department Care Team (Late st Contact Info) Description 01/15/2024 Dental Interim Note [facility] [address] [place] [address] [facility] [place] Social History Tobacco Use Types [...] on filedocumented in this encounter Care Teams Scarf And Anneal Operator Relationship Specialty Start Date End Date Maria Teresa Winters NP PCP - General WHIPPER Nurse Practitioner 03/14/24 10/22/24 documented as of this encounter
--- OUTSIDE RECORDS SUMMARY | 2025-02-18 14:03 | XMS_ITS | Encounter Summary ---
Author Organization [facility] Address [address] [place] [address] Care Team Providers Care Sap Bw Developer Name Role Phone Tej Wells DO Primary Care Provider Unava ilable Encounter Details Date Type Department Care Team (Late st Contact Info) Description 02/10/2025 External Device Data [facility] ABSTRACTION Provider, Abstract NO ADDRESS ON FILE Social History Tobacco Use Types Packs/Day Years Used Date Smoking Tobacco: Never Smokeless Tobacco: Never Alcohol Use Standard Drinks/Week Comments Yes 0 (1 standard drink = 0.6 oz pur e alcohol) Comments Unknown Sex and Gender Information Value Date Recorded Sex Assigned at Not on file Legal Sex Female 11:45 PM HARNESS MENDER Gender Identity Not on file Sexual Orientation Not on file documented as of this encounter Plan of Treatment Not on file documented as of this encounter Visit Diagnoses Not on filedocumented in this encounter Care Teams Sap Bw Developer Relationship Specialty Start Date End Date Tej Wells DO NO ADDRESS ON FILE PCP - General Family Practice 10/15/12 documented as of this encounter
--- OUTSIDE RECORDS SUMMARY | 2025-02-18 14:03 | XMS_ITS | Clinical Summary ---
Author Organization [facility] Address [address] [place] [address] Care Team Providers Care Handle Finisher Name Role Phone Unavailable Primary Care Provider [...] 2022 Fecal DNA 2022 Flexible Sigmoidoscopy 2022 [id number] ( season) 2024 Alcohol and Drug Screen 07/09/2024 Depression Annual Screen 07/09/2024 09/26/2023 Hypertension Screening (#1) 10/25/2024 Imm-Influenza (#1) 2025 Cervical Ablation/Cold-Knife Conization Discontinued Cervical Cryotherapy Discontinued Colposcopy Discontinued Endometrial Biopsy Discontinued Excision/Leep Discontinued HPV Genotyping Discontinued Vaginal Pap Discontinued Vulvoscopy Discontinued Insurance [place]
--- OUTSIDE RECORDS SUMMARY | 2025-02-18 14:03 | XMS_ITS | Clinical Summary ---
Author Organization [facility] Address [address] Attn: [place] [address] Care Team Providers Care Metal Hanger Name Role Phone Tej Wells Primary Care Provider Unava ilable Encounters Date Type Department Care Team Description 02/10/2025 External Device Data [facility] ABSTRACTION Provider, Abstract 01/21/2025 External Device Data [facility] ABSTRACTION Provider, Abstract 01/21/2025 External Device Data [facility] ABSTRACTION Provider, Abstract 01/20/2025 External Device Data [facility] ABSTRACTION Provider, Abstract 12/23/2024 External Device Data [facility] ABSTRACTION Provider, Abstract 11/27/2024 External Device Data [facility] ABSTRACTION Provider, Abstract 11/26/2024 External Device Data [facility] ABSTRACTION Provider, Abstract 11/25/2024 External Device Data [facility] ABSTRACTION Provider, Abstract from Last 3 Months Family History Medical History Relation Name Comments Hypertension Father Stroke Father Other Mother Relation Name Status Comments Father Alive Mother Alive Social History Tobacco Use Types Packs/Day Years Used Date Smoking Tobacco: Never Smokeless Tobacco: Never Alcohol Use Standard Drinks/Week Comments Yes 0 (1 standard drink = 0.6 oz pur e alcohol) Comments Unknown Sex and Gender Information Value Date Recorded Sex Assigned at Not on file Legal Sex Female 11:45 PM SUPERVISOR NEWSPAPER DELIVERIES Gender Identity Not on file Sexual Orientation Not on file Last Filed Vital Signs Vital Sign Reading Time Taken Comments Blood Pressure 92/58 04/24/2018 10:54 AM CDT Pulse 83 09/29/2015 4:00 PM CDT Temperature 36.4 C (97.6 F) 06/10/2016 11:03 PM SUPERVISOR NEWSPAPER DELIVERIES Respiratory Rate 16 06/10/2016 11:03 PM SUPERVISOR NEWSPAPER DELIVERIES Oxygen Saturation - - Inhaled Oxygen Concentration - - Weight 49.7 kg (109 lb 8 oz) 04/24/2018 10:54 AM CDT Height 162.6 cm (5' 4 ) 04/24/2018 10:54 AM CDT Body Mass Index 18.8 04/24/2018 10:54 AM CDT Plan of Treatment Health Maintenance Due Date Last Done Comments DTAP/TDAP/TD VACCINES (3 - Tdap) 06/03/1994 06/02/1994, 02/28/1994, 01/27/1983 HEPATITIS B VACCINES (1 of 3 - 19+ 3-dose series) 1996 BREAST CANCER SCREENING 2017 PAP SMEAR 04/29/2021 04/29/2018, 04/09, 04/24/2018 COLORECTAL SCREENING 2022 Colorectal Cancer Screening 2022 FIT-DNA Q 3 years 2022 FIT/FOBT Q 1 year 2022 Flex Sig/CT Colonography Q 5 years 2022 CERVICAL CANCER SCREENING 04/29/2023 HPV/Cotest (21-29) 04/29/2023 04/29/2018, 04/29/2018 HPV/Cotest (30-65) 04/29/2023 04/29/2018, 04/29/2018 INFLUENZA VACCINE (#1) 2025 04/09/2003, 2002 Procedures Procedure Name Priority Date/Time Associated Diagnosis Comments CERV/VAG CYTO SCREEN PAP W/HPV 04/29/2018 12:00 AM CDT from Last 3 Months or Most Recently Relevant to Health Maintenance Results * CERV/VAG CYTO SCREEN PAP W/HPV (04/29/2018 12:00 AM CDT) Luca Rodríguez DO PATHOLOGY/CYTOLOGY ORDERABLES F inal Result from Last 3 Months or Most Recently Relevant to Health Maintenance Insurance [facility] MEDICAID Care Teams Metal Hanger Relationship Specialty Start Date End Date Tej Wells DO NO ADDRESS ON FILE PCP - General Family Practice 10/15/12
--- OUTSIDE RECORDS SUMMARY | 2025-02-18 14:03 | XMS_ITS | Encounter Summary ---
Author Organization [facility] Address [address] [place] [address] Care Team Providers Care Doper Operator Name Role Phone Maria Teresa Winters NP Primary Care Provider Unavail le Encounter Details Date Type Department Care Team (Late st Contact Info) Description 01/07/2024 [facility] [address] [place] [address] Shahzad Cronin Social History Tobacco [...] WISDOM (NON BILLABLE) Routine 09/12/2023 12:00 AM DIP GUIDER STOVES documented in this encounter Visit Diagnoses Diagnosis Periapical abscess without sinus tract- Primary Periapical abscess without sinus Dental caries on smooth surface penetrating into pulp Dental caries of smooth surface documented in this encounter Care Teams Doper Operator Relationship Specialty Start Date End Date Maria Teresa Winters NP PCP - General SQL CONSULTANT Nurse Practitioner 03/14/24 10/22/24 documented as of this encounter
== END 2025-02-17 19:05 | disposition home or self-care (01) ==
LOC: ER 22:00 → CSU 23:13
PROVIDERS: Internal Medicine Cardiovascular Disease; Admitting Provider Internal Medicine; Emergency Provider Physician Assistant; Visit Provider Family Medicine
DX: I25.118 Atherosclerotic heart disease of native coronary artery with other forms of angina pectoris (principal); R79.89 Other specified abnormal findings of blood chemistry; I47.19 Other supraventricular tachycardia; Z82.49 Family history of ischemic heart disease and other diseases of the circulatory system; Z87.891 Personal history of nicotine dependence; Z66 Do not resuscitate
CPT/HCPCS: 36415; 36416; 71045; 80053; 80061; 82550; 82962; 83036; 84484; 85025; 85347; 85378; 85730; 93005; 93306; 93458; 96365; 96374; 96375; 99152; 99153; 99285; C1769; C1887; C1894; G0378; J1644; J2250; J2270; J2405; J2919; J3010; J7030; J7120; J7512; J9999; Q0163; Q9967

== ENCOUNTER → 2025-02-26 16:25 | Outpatient (BNVA) | payer BC, MEDICAID, SELFPAY | PROVIDERS: Visit Provider Nurse Practitioner Family | DX: R06.02 Shortness of breath (principal); R79.89 Other specified abnormal findings of blood chemistry | CPT/HCPCS: 36415; 80053; 85025 ==

== ENCOUNTER 2025-03-06 12:11 | Emergency (ER) | payer BC, MEDICAID, SELFPAY ==
--- OUTSIDE RECORDS SUMMARY | 2023-12-10 06:30 | XMS_ITS | Continuity of Care Document ---
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 Take for 1 day post sexual encounter. - Active metronidazole 500 mg tablet take 1 tablet by oral route every 12 hours for 7 days. - Active Procedures Procedure Date No Work Today/No Charge Resin-Based Composite One Surface, Posterior Resin-Based Composite Three Surfaces, Posterior Periodontal Scaling And Root Planing Four Or Mor Periodontal Scaling And Root Planing Four Or Mor Periodontal Scaling And Root Planing Four Or Mor Periodontal Scaling And Root Planing Four Or Mor NO CHARGE URINALYSIS AUTO W/O SCOPE SBIRT - AUDIT/DAST, 15-30 MIN OFFICE/OUTPATIENT VISIT, EST URINALYSIS AUTO W/O SCOPE Community Health Worker Patient Face To Face SBIRT - AUDIT/DAST, 15-30 MIN OFFICE/OUTPATIENT VISIT, EST Bitewings Four Films Intraoral Periapical First Film Intraoral Periapical Each Additional Film Intraoral Periapical Each Additional Film Panoramic Film Comprehensive Oral Evaluatio n New Or Established Caries High Risk Exempt From Sealant Measure SBIRT - AUDIT/DAST, 15-30 MIN OFFICE/OUTPATIENT VISIT, EST URINALYSIS AUTO W/O SCOPE Community Health Worker Patient Face To Face Limited Oral Evaluation Problem Focused Intraoral Periapical First Film Advance Directives Directive Yes / No Effective Date File Name No Information Encounters Encounter Description Practice Location Reason(s) For Visit Diagnoses Date Provider Providers Copied on Encounter [facility], [id number]- [place], [id number], [place] tel:[phone] [facility] Encounter for dental exam and cleaning w/o abnormal findings 4 Mehrdad Pike. [address] [place] [address], [address], [place]. tel:[phone] Referring Provider: Shahzad Cronin, [address] [place] [address], [address]. tel:[phone] [facility], [id number]- [place], [id number], [place] tel:[phone] [facility] Encounter for dental exam and cleaning w/o abnormal findings 4 Mehrdad Pike. [address] [place] [address], [address], [place]. tel:[phone] Referring Provider: Shahzad Cronin, [address] [place] [address], [address]. tel:[phone] [facility], [id number]- [place], [id number], [place] tel:[phone] [facility] Encounter for dental exam and cleaning w/o abnormal findings 4 Philippe Mcpherson. [address] [place], [address], [place]. tel:[phone] Referring Provider: Ky Paez, [address] [place] [address], [address]. tel:[phone] [facility], [id number]- [place], [id number], [place] tel:[phone] [facility] Encounter for dental exam and cleaning w/o abnormal findings 4 Philippe Mcpherson. [address] [place], [address], [place]. tel:[phone] Referring Provider: Ky Paez, [address] [place] [address], [address]. tel:[phone] [facility], [id number]- [place], [id number], [place] tel:[phone] [facility] Unspecified abnormal findings in urine 4 Vianey Morel. [address] [place], [address], [place]. tel:[phone] Referring Provider: Maria Teersa Winters, [address] [place] [address], [address]. tel:[phone] OFFICE/OUTPA TIENT VISIT, [facility], [id number]- [place], [id number], [place] tel:[phone] [facility] possible UTI (chief complaint) Urinary tract infection, site not specified 4 Vianey Morel. [address] [place], [address], [place]. tel:[phone] Referring Provider: Maria Teresa Winters, [address] [place] [address], [address]. tel:[phone] [facility], [id number]- [facility], [place], [place], [id number], [place] tel:[phone] [facility] No Information Sep-0 4 Coordinator Abran. [address] [place], [place], [id number], [place]. tel:[phone] Referring Provider: Abran Sánchez r, [address] [place], [address] . tel:[phone] OFFICE/OUTPA TIENT VISIT, [facility], [id number]- [place], [id number], [place] tel:[phone] [facility] Discharge (chief complaint) Bacterial vaginosis Sep-0 4 Marry Worthington. [address] [place] [address], [address], [place]. tel:[phone] Referring Provider: Elin Tuttle, [address] [place] [address], [address]. tel:[phone] [facility], [id number]- [place], [id number], [place] tel:[phone] [facility] Encounter for dental exam and cleaning w/o abnormal findings Sep-0 4 Mehrdad iPke. [address] [place] [address], [address], [place]. tel:[phone] Referring Provider: Shahzad Cronin, [address] [place] [address], [address]. tel:[phone] OFFICE/OUTPA TIENT VISIT, [facility], [id number]- [place], [id number], [place] tel:[phone] [facility] in hospital with flu A ... now having (chief complaint) Vaginal yeast infectionAcute UTI (urinary tract infection)Frequ ency of micturition 4 Vianey Morel. [address] [place], [address], [place]. tel:[phone] Referring Provider: Maria Teresa Winters, [address] [place] [address], [address]. tel:[phone] [facility], [id number]- [place], [id number], [place] tel:[phone] [facility] Low incomeInsuffici ent social insurance and welfare support 3 Coordinator Care. [address], [place], [address], [place]. tel:[phone] [facility], [id number]- [place], [address], [place] tel:[phone] [facility] No Information 3 Marry Worthington. [address] [place] [address], [address], [place]. tel:[phone] Referring Provider: Elin Tuttle, [address] [place] [address], [address]. tel:[phone] [facility], [id number]- [place], [id number], [place] tel:[phone] [facility] Encounter for dental exam and cleaning w/o abnormal findings 3 Mehrdad Pike. [address] [place] [address], [address], [place]. tel:[phone] Referring Provider: Shahzad Cronin, [address] [place] [address], [address]. tel:[phone] Family History Family Member Type Diagnosis Age At Onset No Information Payers Payer name Insurance type Covered alliance party ID denise camargo(s) Cesar [employer] CI [id number] Social History Type Description Quantity Date Captured Comments Alcohol Use Details No Caffeine Use Details Unknown Tobacco Use Status No Information Smoking Status No Information Sex Female Sexual Orientation Decline To Specify Gender Identity Declined To Specify Chief Complaint And Reason For Visit No Information Reason For Referral Reason For Referral No Information Plan Of Treatment Date Type Action Status Referral Ordered: JOSEPH (related to Low income) ordered Referral Ordered: Referrals: Location: [facility] ordered History Of Present Illness Encounter Date Complaint History Of Prese nt Illness possible UTI 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 She has been on several rounds of antibiotics. She is not getting better and continues to have symptomsShe has had 5 bladder surgeries. UA provided in office today. Discharge Onset: 2 weeks a go. The client describes it as fishy and yellow. It occurs continuously. The problem is improving. Context: sexually active. Denies aggravating factors. Denies relieving factors. Associated symptoms include burning and itching. Pertinent negatives include bleeding, parasites and persistent diarrhea. Additional information: Pt states that 2 weeks ago she got on antibiotics for yeast and but they haven't helped. Discharge is now yellow with odor that wasn't present last time. in hospital with flu A ... now having Associated symptoms include having discharge. onset 4 days. She was recently in the hospitalNo having thick white vaginal discharge.She is having some UTI symptomsUrine was done today in office. Functional Status Date Functional Assessmen t No Information Instructions Date Instruction Additional Infor swati Take Macrobid 100mg BID for 7d and for 24 hours after sexual encounters. You may use OTC Azo/Pyridium as needed for relief of dysuria for the next two days. Work on increasing fluid intake, wear cotton underwear, change your underwear regularly, be sure to wipe [id number], void after intercourse, and avoid the use of spermicides in order to help prevent the recurrence of UTIs. Return for further evaluation if your symptoms do not resolve after this course of treatment. Related to Urinary tract infection, site not specified Prescribe Flagyl. Di scussed use of probiotic or yogurt and avoiding alcohol while on antibiotic.Follow up as needed. Related to Bacterial vaginosis Fluconazole 150 mg o nce, can repeat in one week if continuing to have symptomsCLindamycin sent to pharmacy for UTI Related to Vaginal yeast infection Assessments Type Assessment Date No Information Patient Care Teams Name Effective Dates (start - stop) Status Members No Information
[2025-03-06] VITALS (7 sets, daily range): BP systolic 94–124; BP diastolic 63–78; PULSE 54–62; RESP 12–16; TEMP 36.8; O2SAT 94–99; BMI 18.7
--- NOTE | 2025-03-06 12:16 | ECG_ITS ---
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 Measurements Intervals [place] Rate: 56 P: 88 WI: 162 QRS: 85 QRSD: 84 T: 83 QT: 400 QTc: 387 Interpretive Statements SINUS BRADYCARDIA Compared to ECG 02/17/2025 08:39:41 Sinus rhythm no longer present Electronically Signed On 03-06-2025 22:37:55 CDT by Bakari Coelho M.D. [email or web address]
--- OUTSIDE RECORDS SUMMARY | 2025-03-06 12:18 | XMS_ITS | Encounter Summary ---
Author Organization [facility] Address [address] [place] [address] Care Team Providers Care Healthcare Network Consultant Name Role Phone Maria Teresa Winters NP Primary Care Provider Unavail le Encounter Details Date Type Department Care Team (Late st Contact Info) Description 01/07/2024 [facility] [address] [place] [address] Shahzad Cronin Social History Tobacco [...] WISDOM (NON BILLABLE) Routine 09/12/2023 12:00 AM MANAGEMENT PROFESSIONAL documented in this encounter Visit Diagnoses Diagnosis Periapical abscess without sinus tract- Primary Periapical abscess without sinus Dental caries on smooth surface penetrating into pulp Dental caries of smooth surface documented in this encounter Care Teams Healthcare Network Consultant Relationship Specialty Start Date End Date Maria Teresa Winters NP PCP - General HORSE RACETRACK MANAGER Nurse Practitioner 03/14/24 10/22/24 documented as of this encounter
--- OUTSIDE RECORDS SUMMARY | 2025-03-06 12:18 | XMS_ITS | Clinical Summary ---
Author Organization [facility] Address [address] Attn: [place] [address] Care Team Providers Care Cup Machine Operator Name Role Phone LisaTej lowry Man WEINER Primary Care Provider Unava ilable Encounters Date [...] on file Legal Sex Female 11:45 PM FACULTY SUPPORT COORDINATOR Gender Identity Not on file Sexual Orientation Not on file Last Filed Vital Signs Vital Sign Reading Time Taken Comments Blood Pressure 92/58 04/24/2018 10:54 AM CDT Pulse 83 09/29/2015 4:00 PM CDT Temperature 36.4 C (97.6 F) 06/10/2016 11:03 PM FACULTY SUPPORT COORDINATOR Respiratory Rate 16 06/10/2016 11:03 PM FACULTY SUPPORT COORDINATOR Oxygen Saturation - - Inhaled Oxygen Concentration [...] Most Recently Relevant to Health Maintenance Insurance [facility] MEDICAID Care Teams Cup Machine Operator Relationship Specialty Start Date End Date Tej Wells DO NO ADDRESS ON FILE PCP - General Family Practice 10/15/12
--- OUTSIDE RECORDS SUMMARY | 2025-03-06 12:18 | XMS_ITS | Encounter Summary ---
Author Organization [facility] Address [address] [place] [address] Care Team Providers Care Tax Clerk Name Role Phone Maria Teresa Winters NP Primary Care Provider Unavailab le Reason for Visit * Reason Comments Office Visit: Converted Data Conversion Encounter Details Date Type Department Care Team (Late st Contact Info) Description 01/15/2024 Dental Interim Note [facility] [address] [place] [address] [facility] [place] Social History Tobacco Use [...] on filedocumented in this encounter Care Teams Tax Clerk Relationship Specialty Start Date End Date Maria Teresa Winters NP PCP - General RADIO ELECTRONICS TECHNICIAN Nurse Practitioner 03/14/24 10/22/24 documented as of this encounter
--- OUTSIDE RECORDS SUMMARY | 2025-03-06 12:18 | XMS_ITS | Clinical Summary ---
Author Organization [facility] Address [address] [place] [address] Care Team Providers Care Reel Cart Operator Name Role Phone Unavailable Primary Care Provider [...] 2022 Fecal DNA 2022 Flexible Sigmoidoscopy 2022 [id number] ( season) 2024 Alcohol and Drug Screen 07/09/2024 Depression Annual Screen 07/09/2024 09/26/2023 Hypertension Screening (#1) 10/25/2024 Imm-Influenza (#1) 2025 Cervical Ablation/Cold-Knife Conization Discontinued Cervical Cryotherapy Discontinued Colposcopy Discontinued Endometrial Biopsy Discontinued Excision/Leep Discontinued HPV Genotyping Discontinued Vaginal Pap Discontinued Vulvoscopy Discontinued Insurance [place] MEDICAID DENTAL
--- NOTE | 2025-03-06 12:36 | W.ED.CHESTPA ---
HPI - Chest Pain General: Chief Complaint: Chest Pain Stated Complaint: chest pain/sob Time Seen by Provider: 03/06/25 12:25 History of Present Illness: Patient comes in with chest pain. States at 11:00 last night she developed midsternal chest pain which she describes as sharp, constant, no radiation, no alleviating or exacerbating factors. States that she was seen here about 2 to 3 weeks ago after having the same symptoms and was diagnosed with a heart attack. States they did a cath which showed two-vessel blockage about 40 to 50%. No intervention at that time. She was started on atorvastatin and aspirin. Denies fever, cough, congestion, abdominal pain, vomiting, diarrhea. States the sharp chest pain she started all of a sudden. Will check labs, EKG, CTA chest with PE protocol, treat pain with 50 mg of IV Toradol, and reassess. Associated symptoms: Deny abdominal pain, dyspnea, fever(s), nausea or vomiting Related Data Previous Rx's ?Medication ?Instructions ?Recorded nitroglycerin 0.4 mg sublingual 0.4 mg sublingual Q5M PRN Chest 02/17/25 tablet Pain 30 days #30 tabs aspirin 81 mg chewable tablet 81 mg PO DAILY #90 tabs 02/26/25 atorvastatin 40 mg tablet 20 mg (1/2 x 40 mg) PO BEDTIME #90 02/26/25 tabs Allergies Allergy/AdvReac Type Severity Reaction Status Date / Time cephalexin (From Keflex) Allergy ALGY-Anaphy Verified 02/16/25 23:08 laxis levofloxacin (From Levaquin) Allergy ALGY-Anaphy Verified 02/16/25 23:08 laxis Penicillins Allergy ALGY-Anaphy Verified 02/16/25 23:08 laxis ranitidine Allergy ALGY-Hives Verified 02/16/25 23:08 Review of Systems Const: Denies: fever(s) or body aches Resp: Denies: dyspnea or productive cough GI: Denies: abdominal pain, nausea or vomiting [facility] ED PFSH: Social History (Updated 02/16/25 @ 22:32 by Johnnie Lindsey MD) Smoking and tobacco/nicotine status: former use of tobacco/nicotine Quit status (tobacco/nicotine): has quit using Year quit tobacco: 2023 Former quit date comment: Patient used to smoke cigars for about 2 years Alcohol intake: never Substance/Drug Use: never Additional social history: She wants DO NOT RESUSCITATE status as discussed with myself and her daughter Kaylyn on 02/16/2025 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 Physical Exam Const: COMMON NORMALS: no acute distress, patient oriented x3, healthy appearing and alert HENMT: COMMON NORMALS: normocephalic and atraumatic HEAD & SCALP: normocephalic and atraumatic Neck/C-Spine: COMMON NORMALS: full ROM and supple Resp: COMMON NORMALS: normal respiratory effort, No retractions and No use of accessory muscles Cardio: COMMON NORMALS: regular rate and regular rhythm RATE: regular rate RHYTHM: regular rhythm Extremity: COMMON NORMALS: normal to inspection and full ROM Neuro: COMMON NORMALS: patient oriented x3 SENSORIUM/ORIENTATION: Yes alert Psych: COMMON NORMALS: mental status grossly normal and cooperative Course Vital Signs: Vital signs: Vital Signs Temperature 98.2 F 03/06/25 12:20 Pulse Rate 60 03/06/25 15:00 Respiratory Rate 15 03/06/25 15:00 Blood Pressure 105/74 03/06/25 15:00 Pulse Oximetry 94 03/06/25 15:00 Oxygen Delivery Me thod Room Air 03/06/25 15:00 MDM - Chest Pain Medical Decision Making On reassessment I talked with the patient about her test results. She has an allergy to CT dye she thinks so we held off on the CAT scan I checked a D-dimer which was normal. Her troponin came back at 31 initially and 26.5 on repeat. This is down from the 40s where it was a couple weeks ago when she was admitted. Her pain is improved after the Toradol. We talked about symptoms that should prompt immediate return to the emergency department. Given the downtrending of her troponin and her EKG which has no significant changes from prior we will discharge at this time with precautions to return for worsening or changing symptoms. Lab Data 03/06/25 12:34 03/06/25 13:16 Laboratory Results WBC 7.37 10^3/uL (3.29-11.43) 03/06/25 12:34 RBC 4.32 10^6/uL (3.85-5.65) 03/06/25 12:34 Hgb 12.40 g/dL (11.27-16.99) 03/06/25 12:34 Hct 39.3 % (36-47) 03/06/25 12:34 MCV 91.0 fl (85-98) 03/06/25 12:34 MCH 28.7 pg (27-33) 03/06/25 12:34 MCHC 31.6 g/dL (30-55) 03/06/25 12:34 RDW 12.8 % (12.1-15.1) 03/06/25 12:34 Plt Count 254 10^3/cmm (157-399) 03/06/25 12:34 MPV 11.8 fL (7.4-10.4) H 03/06/25 12:34 Neut % (Auto) 58.5 % 03/06/25 12:34 Lymph % (Auto) 32.0 % 03/06/25 12:34 Person % (Auto) 6.4 % 03/06/25 12:34 Eos % (Auto) 2.0 % 03/06/25 12:34 Baso % (Auto) 0.7 % 03/06/25 12:34 Neut # (Auto) 4.31 10^3/uL (1.8-7.7) 03/06/25 12:34 Lymph # (Auto) 2.4 10^3/uL (0.8-4.8) 03/06/25 12:34 Person # (Auto) 0.5 10^3/uL (0.2-0.9) 03/06/25 12:34 Eos # (Auto) 0.2 10^3/uL (0.0-0.8) 03/06/25 12:34 Baso # (Auto) 0.1 10^3/uL (0.0-0.1) 03/06/25 12:34 Nucleated RBC % (auto) 0 % 03/06/25 12:34 Nucleated RBCs # 0.0 /100WBC 03/06/25 12:34 D-Dimer 0.33 ug/mLFEU (0-0.59) 03/06/25 13:16 Sodium 142 mmol/L (136-145) 03/06/25 13:16 Potassium 4.5 mmol/L (3.5-5.1) 03/06/25 13:16 Chloride 109 mmol/L (98-107) H 03/06/25 13:16 Carbon Dioxide 25 mmol/L (22-29) 03/06/25 13:16 Anion Gap 12.5 (5-19) 03/06/25 13:16 BUN 13 mg/dL (6-20) 03/06/25 13:16 Creatinine 0.7 mg/dL (0.5-0.9) 03/06/25 13:16 GFR Calculation 89.7 mL/min (90-130) L 03/06/25 13:16 Glucose 86 mg/dL (65-115) 03/06/25 13:16 Calculated Osmolality 293 mOsm/kg (285-295) 03/06/25 13:16 Calcium 8.7 mg/dL (8.5-10.5) 03/06/25 13:16 Total Bilirubin 0.2 mg/dL (0.15-1.2) 03/06/25 13:16 AST 16 U/L (0-32) 03/06/25 13:16 ALT 13 U/L (0-33) 03/06/25 13:16 Alkaline Phosphatase 62 U/L (35-105) 03/06/25 13:16 Troponin T Baseline 31 ng/L (0-10) H 03/06/25 12:34 Troponin T 120 Minute 26.54 ng/L (0-10) H 03/06/25 14:05 Delta Troponin T -4.46 ABS# (0-10) L 03/06/25 14:05 Total Protein 6.1 g/dL (6.6-8.7) L 03/06/25 13:16 Albumin 4.0 g/dL (3.5-5.2) 03/06/25 13:16 Globulin 2.1 g/dL (1.3-4.6) 03/06/25 13:16 Lipase 57 U/L (13-60) 03/06/25 13:16 All radiology interpretation(s) finalized by discharge EKG Data EKG 2: Interpretation: EKG done March 06, 2025 at 1:38 PM and interpreted by me at 1:39 PM shows sinus bradycardia, ventricular to 53 bpm, no ST segment elevation, nonspecific T wave inversion in V1 and V2 Discharge Plan Discharge Patient Disposition: Home Clinical Impression: Chest pain Condition: Stable Prescriptions: No Action atorvastatin 40 mg tablet 20 mg PO BEDTIME Qty: 90 0RF aspirin 81 mg tablet,chewable 81 mg PO DAILY Qty: 90 0RF nitroglycerin 0.4 mg Tablet, Sublingual 0.4 mg sublingual Q5M PRN (Reason: Chest Pain) 30 Days Qty: 30 0RF Discharge Orders: Discharge ED (Routine); Ordered 03/06/25 Ordered By: Srinivas Snyder Patient Instructions: Chest Pain (ED), Patient Portal & Shan Instructions Print Language: Kyrgyz Coding Level of Care Code ED Bone Density Technician for David Herrera
[2025-03-06 12:53] LABS: Hematocrit 39.3 % (36-47); Hemoglobin 12.40 g/dL (11.27-16.99); Mean Corpuscular HGB Conc 31.6 g/dL (30-55); Mean Corpuscular Hemoglobin 28.7 pg (27-33); Mean Corpuscular Volume 91.0 fl (85-98); Nucleated Red Blood Cells % 0 %; Platelet Count 254 10^3/cmm (157-399); Red Blood Count 4.32 10^6/uL (3.85-5.65); White Blood Count 7.37 10^3/uL (3.29-11.43)
[2025-03-06 13:11] LABS: Troponin(5th) Baseline 31 ng/L (0-10)
[2025-03-06 13:53] LABS: Alanine Aminotransferase 13 U/L (0-33); Albumin Level 4.0 g/dL (3.5-5.2); Alkaline Phosphatase 62 U/L (35-105); Anion Gap 12.5 (5-19); Aspartate Amino Transferase 16 U/L (0-32); Blood Urea Nitrogen 13 mg/dL (6-20); Calcium 8.7 mg/dL (8.5-10.5); Carbon Dioxide 25 mmol/L (22-29); Chloride 109 mmol/L (98-107); Creatinine Clr Calc Pharmacy 82.4956; Globulin 2.1 g/dL (1.3-4.6); Glucose 86 mg/dL (65-115); Lipase 57 U/L (13-60); Osmolality Calculated 293 mOsm/kg (285-295); Potassium 4.5 mmol/L (3.5-5.1); Sodium 142 mmol/L (136-145); Total Protein 6.1 g/dL (6.6-8.7)
[2025-03-06 14:29] LABS: Troponin 5 2HR 26.54 ng/L (0-10); Troponin 5 2HR Delta -4.46 ABS# (0-10)
--- NOTE | 2025-03-06 14:34 | ECG_ITS ---
[facility] Pat Name: Ilana Wilkerson Department: Room: Gender: Female Architectural Inspector: : 1975 Requested By: Srinivas Snyder Order Number: [id number] Katerina MD: Bakari Coelho M.D. Measurements Intervals [place] Rate: 53 P: 71 [place]: 174 QRS: 84 QRSD: 85 T: 81 QT: 428 QTc: 405 Interpretive Statements SINUS BRADYCARDIA Compared to ECG 03/06/2025 12:18:49 No significant changes Electronically Signed On 03-06-2025 22:50:59 CDT by Bakari Coelho M.D. [email or web address]
== END 2025-03-06 15:12 | disposition home or self-care (01) ==
PROVIDERS: Emergency Provider Emergency Medicine
DX: R07.9 Chest pain, unspecified (principal); Z79.82 Long term (current) use of aspirin; Z87.891 Personal history of nicotine dependence
CPT/HCPCS: 36415; 80053; 83690; 84484; 85025; 85378; 93005; 96361; 96374; 99285; J1885; J7030